=== PATIENT | female | born 1965 | race Asian ===

== ENCOUNTER 2018-11-25 12:12 | Outpatient (CLI) | payer OTHER | END 2018-11-25 12:29 | disposition home or self-care (01) | LOC: LAB 12:12 | DX: E03.8 Other specified hypothyroidism (principal); E55.9 Vitamin D deficiency, unspecified; E78.2 Mixed hyperlipidemia; Z13.1 Encounter for screening for diabetes mellitus; N39.0 Urinary tract infection, site not specified; Z11.59 Encounter for screening for other viral diseases; Z12.11 Encounter for screening for malignant neoplasm of colon ==

== ENCOUNTER → 2019-06-30 | Emergency (ER) | payer OTHER ==
[~2019-06-30] VITALS: Ht 157.5 cm; Wt 54.9 kg
== END | disposition home or self-care (01) ==
LOC: ER 15:09
DX: M79.662 Pain in left lower leg (principal); M62.838 Other muscle spasm